=== PATIENT | male | born 1995 | race Caucasian/White ===

== ENCOUNTER 2019-05-13 06:02 | Emergency (ER) | payer MEDICAID, OTHER ==
[2019-05-13] MEDS ORDERED: Diphtheria,Pertussis(Acell),Tetanus Vaccine 0.5 ML SDV IM ONE (06:47)
--- NOTE | 2019-05-13 07:16 | ER ---
DATE SEEN: 05/13/2019 REASON FOR VISIT: Laceration. HISTORY OF PRESENT ILLNESS: This is a 24-year-old male who felt lightheaded at home in the bathroom. He had been drinking, and he fell, hit the head. No passing out, but he sustained lacerations to the left eyebrow, to the chain, and also in the lower lip of his mouth which went through to the inner side. He does not remember his last tetanus. ALLERGIES: He has none. PHYSICAL EXAMINATION: VITAL SIGNS: He has normal vital signs with the exception of blood pressure which is 155/105. HEENT: Head is normocephalic. The left eyebrow has a 2 cm laceration; the chin also has a 2 cm laceration; and the lower lip has a full-thickness laceration about 1-1/2 cm. Pupils are equal, reactive to light. NEUROLOGIC: Normal. Matthew Coma Scale 15/15. MENTAL STATUS: Alert. IMPRESSION: 1. Mild head injury. 2. Lacerations. PLAN: I repaired them using 5-0 Vicryl on the inner lip and 5-0 Ethilon on the outside of the above lacerations. He tolerated the procedure well. Tetanus was addressed appropriately. I advised to return in 5 days to the clinic for removal of stitches. /[id number] MAMADOU/[place]
== END 2019-05-13 07:10 | disposition home or self-care (01) ==
LOC: FB.ED 06:02
DX: S01.112A Laceration without foreign body of left eyelid and periocular area, initial encounter (principal); S01.511A Laceration without foreign body of lip, initial encounter; S01.81XA Laceration without foreign body of other part of head, initial encounter; Z23 Encounter for immunization; W19.XXXA Unspecified fall, initial encounter; W22.8XXA Striking against or struck by other objects, initial encounter; Y92.002 Bathroom of unspecified non-institutional (private) residence as the place of occurrence of the external cause
CPT/HCPCS: 12013; 90471; 90715; 99283-25

== ENCOUNTER 2023-02-17 20:23 | Emergency (ER) | payer OTHER | END 2023-02-17 22:38 | disposition home or self-care (01) | LOC: FB.ED 20:23 | DX: S60.022A Contusion of left index finger without damage to nail, initial encounter (principal); W22.8XXA Striking against or struck by other objects, initial encounter | CPT/HCPCS: 73130-LT; 99283 ==